=== PATIENT | female | born 2000 | race Caucasian/White ===

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

== ENCOUNTER 2019-04-20 08:34 | Emergency (ER) | payer OTHER ==
[~2019-04-20] VITALS: Ht 162.5 cm; Wt 62.6 kg
[~2019-04-20 08:34] MED LIST changes: +NAPROSYN500 MG PO
== END 2019-04-20 11:05 | disposition home or self-care (01) ==
LOC: ED 08:34
DX: Z34.92 Encounter for supervision of normal pregnancy, unspecified, second trimester (principal); Z3A.20 20 weeks gestation of pregnancy

== ENCOUNTER 2021-03-22 18:08 | Emergency (ER) | payer OTHER ==
[~2021-03-22] VITALS: Ht 162.5 cm; Wt 59.0 kg
[2021-03-22] MEDS ORDERED: AUGMENTIN 875-875 MG PO (18:59)
[2021-03-22] MEDS ORDERED: KENALOG 0.025%15 GM T (18:59)
== END 2021-03-22 19:20 | disposition home or self-care (01) ==
LOC: ED 18:08
DX: S30.860A Insect bite (nonvenomous) of lower back and pelvis, initial encounter (principal); L08.9 Local infection of the skin and subcutaneous tissue, unspecified; W57.XXXA Bitten or stung by nonvenomous insect and other nonvenomous arthropods, initial encounter; Y93.89 Activity, other specified; Y92.89 Other specified places as the place of occurrence of the external cause; Y99.8 Other external cause status

== ENCOUNTER 2021-07-23 09:57 | Emergency (ER) | payer OTHER ==
[~2021-07-23] VITALS: Wt 59.0 kg
[~2021-07-23 09:57] MED LIST changes: +AUGMENTIN 875-875 MG PO; +KENALOG 0.025%15 GM T
== END 2021-07-23 11:41 | disposition left against medical advice (07) ==
LOC: ED 09:57
DX: R22.0 Localized swelling, mass and lump, head (principal); Z53.21 Procedure and treatment not carried out due to patient leaving prior to being seen by health care provider